=== PATIENT | female | born 1945 | race Caucasian/White ===

== ENCOUNTER 2018-05-26 13:24 | Inpatient (IN) | payer OTHER ==
[~2018-05-26] VITALS: Ht 172.7 cm; Wt 91.0 kg
[2018-05-26 14:20] LABS: HEMATOCRIT 39.1 % (36.0-46.0); MCH 29.4 PG (29.0-34.0); MCHC 33.2 G/DL (30.0-36.0); MCV 88.5 FL (83-99); PLATELET COUNT 248 K/uL (156-360); RBC DIS.WIDTH-CV 14.5 % (11.8-14.6); RBC DIS.WIDTH-SD 46.9 % (39-53); RED BLOOD COUNT 4.42 M/uL (3.80-5.20); WHITE BLOOD COUNT 7.6 K/uL (4.1-10.2)
[2018-05-26 14:33] LABS: CHLORIDE 104 mEq/L (99-109); POTASSIUM 4.5 mEq/L (3.7-5.4); SODIUM 141 mEq/L (136-147)
[2018-05-26 14:34] LABS: GLUCOSE 116 mg/dL (70-99)
[2018-05-26 14:38] LABS: CREATININE 0.8 mg/dL (0.6-1.3); GFR ESTIMATE (CALCULATED) > 59 mL/min/
[2018-05-26 14:39] LABS: UREA NITROGEN (BUN) 16 mg/dL (9-23)
[2018-05-26 14:42] LABS: TROP-I INTERPRETATION NEGATIVE; TROPONIN-I 0.04 ng/mL (0.0-0.30)
[2018-05-26] MEDS ORDERED: METFORMIN HCL1000 MG PO (16:08)
[2018-05-26] MEDS ORDERED: GLIPIZIDE10 MG PO (16:08)
[2018-05-26] MEDS ORDERED: ADULT ASPIRIN R81 MG PO (16:09)
[2018-05-26] MEDS ORDERED: MEGARED OMEGA-1 EAC2 PO (16:09)
[2018-05-26] MEDS ORDERED: MOVE FREE JOIN1 EACH PO (16:09)
[2018-05-26 17:08] LABS: THYROTROPIN (TSH) 3.6 MIU/L (0.4-5.5)
[2018-05-26 17:48] VITALS: BP 114/63
[2018-05-26 18:03] LABS: D-DIMER ELISA < 150.00 ng/mLDDU (<230)
[2018-05-26 18:11] LABS: TROP-I INTERPRETATION NEGATIVE; TROPONIN-I 0.05 ng/mL (0.0-0.30)
[2018-05-26 19:37] VITALS: BP 117/79
[2018-05-26 19:56] LABS: APPEARANCE CLEAR ((CLEAR)); BILIRUBIN NEGATIVE; BLOOD SMALL; COLOR YELLOW ((YELLOW)); GLUCOSE (STRIP) NEGATIVE; KETONES 5; LEUKOCYTES NEGATIVE; NITRITE NEGATIVE; PROTEIN (STRIP) NEGATIVE; SPECIFIC GRAVITY 1.018 (1.000-1.030); UROBILINOGEN 0.2 MG/DL (0.2-1.0)
[2018-05-26 20:15] LABS: BACTERIA NONE SEEN /HPF; EPITHELIAL CELLS RARE /HPF; HYALINE CASTS 0-5 /LPF; MUCUS TRACE /LPF; RED BLOOD CELLS 0-5 /HPF (0-5); UCUL ADDED? NO; WHITE BLOOD CELLS 0-5 /HPF (0-5)
[2018-05-27 00:08] VITALS: BP 121/61
[2018-05-27 01:42] LABS: HEMATOCRIT 37.9 % (36.0-46.0); HEMOGLOBIN 12.6 G/DL (11.9-15.5); MCH 29.5 PG (29.0-34.0); MCHC 33.2 G/DL (30.0-36.0); MCV 88.8 FL (83-99); PLATELET COUNT 250 K/uL (156-360); RBC DIS.WIDTH-CV 14.7 % (11.8-14.6); RBC DIS.WIDTH-SD 47.5 % (39-53); RED BLOOD COUNT 4.27 M/uL (3.80-5.20); WHITE BLOOD COUNT 8.4 K/uL (4.1-10.2)
[2018-05-27 01:54] LABS: CHLORIDE 105 mEq/L (99-109)
[2018-05-27 01:55] LABS: POTASSIUM 4.2 mEq/L (3.7-5.4); SODIUM 139 mEq/L (136-147)
[2018-05-27 01:56] LABS: GLUCOSE 87 mg/dL (70-99)
[2018-05-27 02:00] LABS: CREATININE 0.8 mg/dL (0.6-1.3); GFR ESTIMATE (CALCULATED) > 59 mL/min/
[2018-05-27 02:01] LABS: UREA NITROGEN (BUN) 16 mg/dL (9-23)
[2018-05-27 02:04] LABS: TROP-I INTERPRETATION NEGATIVE; TROPONIN-I 0.06 ng/mL (0.0-0.30)
[2018-05-27 03:35] LABS: HDL CHOLESTEROL 50 MG/DL (Desirable>=50); LDL CHOLESTEROL 138 mg/dL (Desirable<100); NON-HDL CHOLESTEROL 162 mg/dL (Desirable<160); TOTAL CHOLESTEROL 212 mg/dL (Desirable<200); TRIGLYCERIDES 122 MG/DL (Normal: <150)
[2018-05-27 04:00] VITALS: BP 151/68
[2018-05-27 06:51] VITALS: BP 112/59
[2018-05-27 09:09] LABS: HEMOGLOBIN A1c (GLYCOHEMOGLOB) 7.1 % (Below 5.7)
[2018-05-27 11:10] VITALS: BP 139/80
[2018-05-27 15:31] VITALS: BP 123/86
[2018-05-27 20:04] LABS: INTER. NORMALIZED RATIO 1.1
[2018-05-27 20:07] LABS: PTT 27.7 SEC (25-37)
[2018-05-27 20:50] VITALS: BP 135/83
[2018-05-28 00:20] VITALS: BP 117/65
[2018-05-28 04:17] VITALS: BP 169/66
[2018-05-28 05:32] LABS: BASOPHIL (%) 0.4 % (0-1); EOSINOPHIL (%) 1.4 % (0-5); EOSINOPHIL COUNT 0.1 K/uL (0-0.3); HEMATOCRIT 36.5 % (36.0-46.0); HEMOGLOBIN 11.9 G/DL (11.9-15.5); IMMATURE GRANULOCYTE (%) 0.7 % (0.0-0.7); LYMPHOCYTE COUNT 0.8 K/uL (1.0-2.8); MCH 28.8 PG (29.0-34.0); MCHC 32.6 G/DL (30.0-36.0); MCV 88.4 FL (83-99); MONOCYTE (%) 9.1 % (3-12); MONOCYTE COUNT 0.6 K/uL (0-0.8); NEUTROPHIL (%) 77.4 % (45-76); NEUTROPHIL COUNT 5.4 K/uL (1.8-6.4); PLATELET COUNT 241 K/uL (156-360); RBC DIS.WIDTH-CV 14.8 % (11.8-14.6); RBC DIS.WIDTH-SD 47.8 % (39-53); RED BLOOD COUNT 4.13 M/uL (3.80-5.20)
[2018-05-28 05:52] LABS: ALKALINE PHOSPHATASE 50 IU/L (3-129); ALT (GPT) 13 IU/L (3-49); AST (GOT) 12 IU/L (2-34); CHLORIDE 103 MEQ/L (99-109); CREATININE 0.8 MG/DL (0.6-1.3); GFR ESTIMATE (CALCULATED) > 59 mL/min/; POTASSIUM 4.5 MEQ/L (3.7-5.4); SODIUM 135 MEQ/L (136-147); TOTAL BILIRUBIN 0.6 MG/DL (0.0-1.0); TOTAL PROTEIN 6.3 G/DL (6.4-8.3); UREA NITROGEN (BUN) 18 mg/dL (9-23)
[2018-05-28 06:00] LABS: GLUCOSE 185 mg/dL (70-99)
[2018-05-28 07:44] VITALS: BP 92/52
[2018-05-28 15:34] VITALS: BP 104/62
[2018-05-28 19:25] VITALS: BP 102/68
[2018-05-28 23:00] VITALS: BP 104/64
[2018-05-29 03:17] VITALS: BP 102/72
[2018-05-29 05:36] LABS: BASOPHIL (%) 0.4 % (0-1); EOSINOPHIL (%) 1.2 % (0-5); EOSINOPHIL COUNT 0.1 K/uL (0-0.3); HEMATOCRIT 35.9 % (36.0-46.0); HEMOGLOBIN 11.6 G/DL (11.9-15.5); IMMATURE GRANULOCYTE (%) 0.8 % (0.0-0.7); LYMPHOCYTE (%) 10.9 % (15-42); LYMPHOCYTE COUNT 0.8 K/uL (1.0-2.8); MCH 28.9 PG (29.0-34.0); MCHC 32.3 G/DL (30.0-36.0); MCV 89.5 FL (83-99); MONOCYTE (%) 10.9 % (3-12); MONOCYTE COUNT 0.8 K/uL (0-0.8); NEUTROPHIL (%) 75.8 % (45-76); NEUTROPHIL COUNT 5.5 K/uL (1.8-6.4); PLATELET COUNT 222 K/uL (156-360); RBC DIS.WIDTH-CV 14.6 % (11.8-14.6); RBC DIS.WIDTH-SD 47.8 % (39-53); RED BLOOD COUNT 4.01 M/uL (3.80-5.20); WHITE BLOOD COUNT 7.2 K/uL (4.1-10.2)
[2018-05-29 05:54] LABS: ALBUMIN 3.8 G/DL (3.2-4.8); ALKALINE PHOSPHATASE 54 IU/L (3-129); ALT (GPT) 18 IU/L (3-49); AST (GOT) 15 IU/L (2-34); CHLORIDE 103 MEQ/L (99-109); CREATININE 0.8 MG/DL (0.6-1.3); GFR ESTIMATE (CALCULATED) > 59 mL/min/; GLUCOSE 163 mg/dL (70-99); POTASSIUM 4.4 MEQ/L (3.7-5.4); SODIUM 137 MEQ/L (136-147); TOTAL BILIRUBIN 0.6 MG/DL (0.0-1.0); UREA NITROGEN (BUN) 19 mg/dL (9-23)
[2018-05-29 07:02] VITALS: BP 122/62
[2018-05-29 11:11] VITALS: BP 121/52
[2018-05-29] MEDS ORDERED: ELIQUIS5 MG PO (12:05)
[2018-05-29 15:19] VITALS: BP 116/63
[2018-05-29 19:16] VITALS: BP 124/54
[2018-05-29 23:56] VITALS: BP 84/47
[2018-05-30 04:15] VITALS: BP 125/64
[2018-05-30 06:08] LABS: HEMATOCRIT 38.2 % (36.0-46.0); HEMOGLOBIN 12.2 G/DL (11.9-15.5); MCH 28.6 PG (29.0-34.0); MCHC 31.9 G/DL (30.0-36.0); MCV 89.7 FL (83-99); PLATELET COUNT 253 K/uL (156-360); RBC DIS.WIDTH-CV 14.5 % (11.8-14.6); RBC DIS.WIDTH-SD 46.2 % (39-53); RED BLOOD COUNT 4.26 M/uL (3.80-5.20); WHITE BLOOD COUNT 8.3 K/uL (4.1-10.2)
[2018-05-30 06:36] LABS: CHLORIDE 101 MEQ/L (99-109); CREATININE 0.9 MG/DL (0.6-1.3); GFR ESTIMATE (CALCULATED) > 59 mL/min/; GLUCOSE 184 mg/dL (70-99); MAGNESIUM 1.9 mg/dl (1.3-2.7); POTASSIUM 4.6 MEQ/L (3.7-5.4); SODIUM 135 MEQ/L (136-147); UREA NITROGEN (BUN) 23 mg/dL (9-23)
[2018-05-30 09:25] VITALS: BP 110/84
[2018-05-30 11:50] VITALS: BP 103/59
[2018-05-30 15:14] VITALS: BP 116/57
[2018-05-30 18:50] VITALS: BP 116/55
[2018-05-30 23:55] VITALS: BP 107/71
[2018-05-31 04:06] VITALS: BP 126/68
[2018-05-31 05:20] LABS: HEMOGLOBIN 11.8 G/DL (11.9-15.5); MCH 28.4 PG (29.0-34.0); MCHC 31.9 G/DL (30.0-36.0); MCV 89.2 FL (83-99); PLATELET COUNT 245 K/uL (156-360); RBC DIS.WIDTH-CV 14.5 % (11.8-14.6); RBC DIS.WIDTH-SD 46.7 % (39-53); RED BLOOD COUNT 4.15 M/uL (3.80-5.20); WHITE BLOOD COUNT 7.4 K/uL (4.1-10.2)
[2018-05-31 05:45] LABS: CHLORIDE 105 MEQ/L (99-109); CREATININE 0.8 MG/DL (0.6-1.3); GFR ESTIMATE (CALCULATED) > 59 mL/min/; GLUCOSE 173 mg/dL (70-99); MAGNESIUM 1.8 mg/dl (1.3-2.7); POTASSIUM 4.7 MEQ/L (3.7-5.4); SODIUM 138 MEQ/L (136-147); UREA NITROGEN (BUN) 22 mg/dL (9-23)
[2018-05-31 09:22] VITALS: BP 111/65
[2018-05-31] MEDS ORDERED: LISINOPRIL5 MG PO (14:02)
[2018-05-31] MEDS ORDERED: PRAVASTATIN SOD40 MG PO (14:02)
[2018-05-31] MEDS ORDERED: CARVEDILOL12.5 MG PO (14:02)
[2018-05-31] MEDS ORDERED: ASPIR-LOW81 MG PO (14:02)
[2018-05-31 16:35] VITALS: BP 122/67
== END 2018-05-31 20:14 | disposition home health service (06) | DRG 287 ==
LOC: EME 13:24 → EDOF 15:33 → 4EAST 15:33 → ENRESERV 15:44 → 4EAST 17:02
PROVIDERS: Family Medicine; Hospitalist; Internal Medicine; Internal Medicine Cardiovascular Disease
PROC: B2111ZZ Fluoroscopy of Multiple Coronary Arteries using Low Osmolar Contrast (ICD-10-PCS; principal; 2018-05-28)
PROC: 4A023N7 Measurement of Cardiac Sampling and Pressure, Left Heart, Percutaneous Approach (ICD-10-PCS; principal; 2018-05-28)
DX: I48.91 Unspecified atrial fibrillation (principal); I42.9 Cardiomyopathy, unspecified; I08.1 Rheumatic disorders of both mitral and tricuspid valves; I27.20 Pulmonary hypertension, unspecified; I25.10 Atherosclerotic heart disease of native coronary artery without angina pectoris; I44.7 Left bundle-branch block, unspecified; E78.5 Hyperlipidemia, unspecified; E11.9 Type 2 diabetes mellitus without complications; Z79.84 Long term (current) use of oral hypoglycemic drugs; Z82.41 Family history of sudden cardiac death; Z82.49 Family history of ischemic heart disease and other diseases of the circulatory system
CPT/HCPCS: 70450; 71046; 80048; 80053; 80061; 81003; 82948; 83036; 83735; 83880; 84439; 84443; 84481; 84484; 85025; 85027; 85379; 85610; 85730; 93005; 93306; 94010; 99202; 99281; 99285; C1769; C1887; J1160; J1644; J1650; J1815; J2250; J3010; J7040

== ENCOUNTER 2018-06-21 10:15 | Inpatient (IN) | payer OTHER ==
[~2018-06-21] VITALS: Ht 154.9 cm; Wt 82.1 kg
[~2018-06-21 10:15] MED LIST: ADULT ASPIRIN R81 MG PO; ASPIR-LOW81 MG PO; CARVEDILOL12.5 MG PO; ELIQUIS5 MG PO; GLIPIZIDE10 MG PO; LISINOPRIL5 MG PO; MEGARED OMEGA-1 EAC2 PO; METFORMIN HCL1000 MG PO; MOVE FREE JOIN1 EACH PO; PRAVASTATIN SOD40 MG PO
[2018-06-21 11:07] LABS: BASOPHIL (%) 0.3 % (0-1); EOSINOPHIL (%) 1.2 % (0-5); EOSINOPHIL COUNT 0.1 K/uL (0-0.3); HEMATOCRIT 31.8 % (36.0-46.0); HEMOGLOBIN 11.2 G/DL (11.9-15.5); IMMATURE GRANULOCYTE (%) 0.4 % (0.0-0.7); INTER. NORMALIZED RATIO 1.9; LYMPHOCYTE (%) 6.9 % (15-42); LYMPHOCYTE COUNT 0.5 K/uL (1.0-2.8); MCH 29.7 PG (29.0-34.0); MCHC 35.2 G/DL (30.0-36.0); MCV 84.4 FL (83-99); MONOCYTE COUNT 0.7 K/uL (0-0.8); NEUTROPHIL (%) 81.2 % (45-76); PLATELET COUNT 192 K/uL (156-360); RBC DIS.WIDTH-CV 14.3 % (11.8-14.6); RBC DIS.WIDTH-SD 43.8 % (39-53); RED BLOOD COUNT 3.77 M/uL (3.80-5.20); WHITE BLOOD COUNT 7.4 K/uL (4.1-10.2)
[2018-06-21 11:12] LABS: CHLORIDE 90 mEq/L (99-109); POTASSIUM 5.2 mEq/L (3.7-5.4)
[2018-06-21 11:14] LABS: GLUCOSE 146 mg/dL (70-99)
[2018-06-21 11:18] LABS: CREATININE 0.9 mg/dL (0.6-1.3); GFR ESTIMATE (CALCULATED) > 59 mL/min/; UREA NITROGEN (BUN) 23 mg/dL (9-23)
[2018-06-21 11:19] LABS: PTT 32.7 SEC (25-37)
[2018-06-21 11:23] LABS: SODIUM 119 mEq/L (136-147); TROP-I INTERPRETATION NEGATIVE; TROPONIN-I 0.01 ng/mL (0.0-0.30)
[2018-06-21 12:04] LABS: APPEARANCE CLEAR ((CLEAR)); BILIRUBIN NEGATIVE; BLOOD NEGATIVE; COLOR YELLOW ((YELLOW)); GLUCOSE (STRIP) NEGATIVE; KETONES NEGATIVE; LEUKOCYTES NEGATIVE; NITRITE NEGATIVE; PROTEIN (STRIP) NEGATIVE; SPECIFIC GRAVITY 1.009 (1.000-1.030); UCUL ADDED? NO; UROBILINOGEN 0.2 MG/DL (0.2-1.0)
[2018-06-21] MEDS ORDERED: ASPIR-LOW81 MG PO (12:42)
[2018-06-21] MEDS ORDERED: LISINOPRIL5 MG PO (12:43)
[2018-06-21] MEDS ORDERED: FUROSEMIDE20 MG PO (12:44)
[2018-06-21] MEDS ORDERED: SERTRALINE HCL25 MG PO (12:44)
[2018-06-21 13:17] LABS: MAGNESIUM 1.6 mg/dL (1.3-2.7)
[2018-06-21 15:30] VITALS: BP 106/51
[2018-06-21 16:04] LABS: URIC ACID 7.7 mg/dL (3.1-9.2)
[2018-06-21 17:16] LABS: CHLORIDE 92 mEq/L (99-109); POTASSIUM 4.7 mEq/L (3.7-5.4); SODIUM 122 mEq/L (136-147)
[2018-06-21 17:17] LABS: GLUCOSE 171 mg/dL (70-99)
[2018-06-21 17:21] LABS: CREATININE 0.9 mg/dL (0.6-1.3); GFR ESTIMATE (CALCULATED) > 59 mL/min/
[2018-06-21 17:22] LABS: UREA NITROGEN (BUN) 23 mg/dL (9-23)
[2018-06-21 17:27] LABS: TROP-I INTERPRETATION NEGATIVE; TROPONIN-I < 0.01 ng/mL (0.0-0.30)
[2018-06-21 19:58] VITALS: BP 119/64
[2018-06-21 23:28] LABS: TROP-I INTERPRETATION NEGATIVE; TROPONIN-I 0.02 ng/mL (0.0-0.30)
[2018-06-22 00:27] VITALS: BP 117/63
[2018-06-22 04:12] VITALS: BP 138/68
[2018-06-22 05:59] LABS: HEMATOCRIT 33.3 % (36.0-46.0); HEMOGLOBIN 11.5 G/DL (11.9-15.5); MCH 29.3 PG (29.0-34.0); MCHC 34.5 G/DL (30.0-36.0); MCV 84.9 FL (83-99); PLATELET COUNT 209 K/uL (156-360); RBC DIS.WIDTH-CV 14.6 % (11.8-14.6); RBC DIS.WIDTH-SD 44.9 % (39-53); RED BLOOD COUNT 3.92 M/uL (3.80-5.20); WHITE BLOOD COUNT 8.2 K/uL (4.1-10.2)
[2018-06-22 06:21] LABS: CHLORIDE 93 MEQ/L (99-109); CREATININE 0.8 MG/DL (0.6-1.3); GFR ESTIMATE (CALCULATED) > 59 mL/min/; GLUCOSE 134 mg/dL (70-99); POTASSIUM 4.4 MEQ/L (3.7-5.4); SODIUM 123 MEQ/L (136-147); UREA NITROGEN (BUN) 19 mg/dL (9-23)
[2018-06-22 07:26] LABS: C DIFF TOXIN NEGATIVE (NEGATIVE)
[2018-06-22 08:30] VITALS: BP 125/68
[2018-06-22 12:13] VITALS: BP 130/64
[2018-06-22 15:14] VITALS: BP 106/59
[2018-06-22 16:44] LABS: CHLORIDE 95 MEQ/L (99-109); CREATININE 0.9 MG/DL (0.6-1.3); GFR ESTIMATE (CALCULATED) > 59 mL/min/; GLUCOSE 119 mg/dL (70-99); POTASSIUM 3.8 MEQ/L (3.7-5.4); SODIUM 129 MEQ/L (136-147); UREA NITROGEN (BUN) 20 mg/dL (9-23)
[2018-06-22 19:41] VITALS: BP 108/58
[2018-06-23] VITALS (7 sets, daily range): BP systolic 98–125; BP diastolic 60–92
[2018-06-23 06:17] LABS: CHLORIDE 96 MEQ/L (99-109); CREATININE 0.8 MG/DL (0.6-1.3); GFR ESTIMATE (CALCULATED) > 59 mL/min/; GLUCOSE 146 mg/dL (70-99); POTASSIUM 3.9 MEQ/L (3.7-5.4); SODIUM 130 MEQ/L (136-147); UREA NITROGEN (BUN) 23 mg/dL (9-23)
[2018-06-23 11:24] LABS: MAGNESIUM 1.4 mg/dl (1.3-2.7)
[2018-06-24 05:04] VITALS: BP 107/65
[2018-06-24 06:47] LABS: CHLORIDE 95 MEQ/L (99-109); CREATININE 0.9 MG/DL (0.6-1.3); GFR ESTIMATE (CALCULATED) > 59 mL/min/; GLUCOSE 168 mg/dL (70-99); POTASSIUM 3.3 MEQ/L (3.7-5.4); SODIUM 131 MEQ/L (136-147); UREA NITROGEN (BUN) 26 mg/dL (9-23)
[2018-06-24 07:08] VITALS: BP 122/80
[2018-06-24] MEDS ORDERED: LISINOPRIL2.5 MG PO (10:56)
[2018-06-24] MEDS ORDERED: K-DUR20 MEQ PO (11:07)
== END 2018-06-24 15:51 | disposition home health service (06) | DRG 640 ==
LOC: EME 10:15 → 4EAST 12:33 → EDOF 12:33 → ENRESERV 12:35 → 4EAST 15:13
PROVIDERS: Emergency Medicine; Hospitalist; Internal Medicine
DX: E87.1 Hypo-osmolality and hyponatremia (principal); I11.0 Hypertensive heart disease with heart failure; I50.23 Acute on chronic systolic (congestive) heart failure; I95.9 Hypotension, unspecified; I42.9 Cardiomyopathy, unspecified; I48.2 Chronic atrial fibrillation; I27.20 Pulmonary hypertension, unspecified; E11.9 Type 2 diabetes mellitus without complications; I44.7 Left bundle-branch block, unspecified; E78.5 Hyperlipidemia, unspecified; E87.6 Hypokalemia; I25.10 Atherosclerotic heart disease of native coronary artery without angina pectoris; E66.9 Obesity, unspecified; Z68.38 Body mass index [BMI] 38.0-38.9, adult; F41.8 Other specified anxiety disorders; Z79.01 Long term (current) use of anticoagulants; Z79.82 Long term (current) use of aspirin; Z79.84 Long term (current) use of oral hypoglycemic drugs
CPT/HCPCS: 71045; 74176; 80048; 80048 91; 81003; 82948; 83735; 83880; 83935; 84300; 84484; 84550; 85025; 85027; 85610; 85730; 87493; 93005; 97530 GO; 99281; 99285; J1815; J1940; J7030